=== PATIENT | female | born 1940 | race Caucasian/White ===

== ENCOUNTER → 2021-07-18 | Day surgery (SDC) | payer MEDICARE, BC ==
[~2021-07-18] MED LIST: DILTIAZEM 12HR120 MG PO; ELIQUIS5 MG PO; ENDOCET 10-3251 EACH PO; ISOSORBIDE MONO30 MG PO; LASIX20 MG PO; LEVOTHYROXINE88 MC1 PO; LEXAPRO10 MG PO; LIPITOR40 MG PO; MIDODRINE HCL10 MG PO; NEURONTIN800 MG PO; PACERONE200 MG PO; VOLTAREN 0.1%2.5 ML OP
== END | disposition home or self-care (01) ==
LOC: OR 07:30
DX: M47.26 Other spondylosis with radiculopathy, lumbar region (principal); M25.552 Pain in left hip; I25.10 Atherosclerotic heart disease of native coronary artery without angina pectoris; F11.20 Opioid dependence, uncomplicated; Z79.899 Other long term (current) drug therapy; F17.210 Nicotine dependence, cigarettes, uncomplicated; Z79.01 Long term (current) use of anticoagulants; Z20.822 Contact with and (suspected) exposure to COVID-19
CPT/HCPCS: 76000; J1040; Q9967